=== PATIENT | male | born 1985 | race Caucasian/White ===

== ENCOUNTER 2022-05-17 09:31 | Emergency (ER) | payer SELFPAY ==
[2022-05-17] MEDS ORDERED: Orphenadrine 100 MG Tab.ER PO ONE (11:11)
[2022-05-17] MEDS ORDERED: Ketorolac 60 MG/2 ML SDV IM ONE (11:11)
[2022-05-17] MEDS ORDERED: HYDROmorphone 0.5 MG/0.5 ML Syringe IM ONE (11:46)
== END 2022-05-17 13:40 | disposition home or self-care (01) ==
LOC: JD.ED 09:31
DX: M54.42 Lumbago with sciatica, left side (principal); Z79.899 Other long term (current) drug therapy; Z72.0 Tobacco use
CPT/HCPCS: 72100; 96372; 99283; A9270; J1170; J1885